=== PATIENT | female | born 2000 | race Caucasian/White ===

== ENCOUNTER 2023-07-04 06:40 | Inpatient (IN) | payer OTHER ==
[2023-07-04] MEDS ORDERED: ELECTROLYTE-148 SOLN 1,000 ML IV SCH (11:00)
[2023-07-04 11:23] LABS: BASO % 0.4 % (0-2.0); EOS % 1.3 % (0-4.5); HEMATOCRIT 38.5 % (32.4-45.2); HEMOGLOBIN 12.5 GM/dL (10.7-15.3); LYMPH % 14.9 % (8-40); MCHC 32.5 g/dl (32.0-36.0); MEAN PLT VOLUME 10.1 fl (7.5-11.1); MONO % 7.3 % (3.8-10.2); NEUT % 76.1 % (42.8-82.8); PLATELET COUNT 172 10^3/uL (134-434); RBC 4.81 M/mm3 (3.60-5.2); RDW 13.7 % (11.6-15.6)
[2023-07-04 11:28] LABS: INR 1.1 (0.83-1.09); PROTHROMBIN TIME (PATIENT) 12.8 SEC (9.7-13.0)
[2023-07-04 11:31] LABS: ACTIVATED PTT 29.9 SECONDS (25.2-36.5)
[2023-07-04 11:39] VITALS: BMI 37.8
[2023-07-04 12:00] LABS: POTASSIUM 4.3 mmol/L (3.5-5.1)
[2023-07-04 12:01] LABS: CALCIUM 9.4 mg/dL (8.5-10.1)
[2023-07-04 12:02] LABS: BLOOD UREA NITROGEN 10.1 mg/dL (7-18)
[2023-07-04 12:05] LABS: CREATININE 0.6 mg/dL (0.55-1.3)
[2023-07-04 12:50] LABS: COCAINE, UR NEGATIVE (NEGATIVE); METHADONE, UR NEGATIVE (NEGATIVE); URINE AMPHETAMINES NEGATIVE (NEGATIVE); URINE BENZODIAZEPINES NEGATIVE (NEGATIVE)
[2023-07-04 12:51] LABS: OPIATES, URI NEGATIVE (NEGATIVE); PHENCYCLIDINE,URINE NEGATIVE (NEGATIVE); URINE BARBITURATES NEGATIVE (NEGATIVE)
[2023-07-04 13:30] LABS: SYPHILIS W/ RPR CONF NON-REACTIVE (NONREACTIVE)
[2023-07-04 13:59] LABS: HIV INTERPRETATION NEGATIVE (NEGATIVE)
[2023-07-04] MEDS ORDERED: FENTANYL/BUPIVACAINE/NS/PF - PCEA - 50 ML DISP.SYRIN EP ONE ×4 (14:02→22:54)
[2023-07-04] MEDS: FENTANYL/BUPIVACAINE/NS/PF - PCEA - 50 ML DISP.SYRIN EP SCH (14:25)
[2023-07-04] MEDS ORDERED: NALOXONE HCL 0.4 MG/ML VIAL IVPUSH PRN (14:56)
[2023-07-04] MEDS ORDERED: OXYTOCIN 30 UNITS in 0.9% NS 30 UNIT/500 ML INFUS.BAG IVPB ONE (16:14)
[2023-07-04] MEDS ORDERED: OXYTOCIN 30 UNITS in 0.9% NS 30 UNIT/500 ML INFUS.BAG IVPB SCH (16:30)
[2023-07-04] MEDS ORDERED: OXYTOCIN 20 UNITS in 0.9% NS 20 UNIT/1,000 ML INFUS.BAG IV ONE (22:25)
[2023-07-04] MEDS ORDERED: LIDOCAINE HCL 1% PRESERVATIVE FREE - 30ML VIAL ONE (22:26)
[2023-07-05] MEDS ORDERED: OXYTOCIN 20 UNITS in 0.9% NS 20 UNIT/1,000 ML INFUS.BAG IV ONE (00:46)
[2023-07-05] MEDS ORDERED: METHYLERGONOVINE MALEATE 0.2 MG/1 ML AMP IM PRN (01:17)
[2023-07-05] MEDS ORDERED: BISACODYL 10 MG SUPP.RECT RC PRN (01:17)
[2023-07-05] MEDS ORDERED: oxyCODONE HCL 5 MG TABLET PO PRN (01:17)
[2023-07-05] MEDS ORDERED: WITCH HAZEL 50% (TUCKS) 40 PAD/JAR PAD TP PRN (01:17)
[2023-07-05] MEDS ORDERED: ACETAMINOPHEN 325 MG TABLET (FP) PO PRN (01:17)
[2023-07-05] MEDS ORDERED: BENZOCAINE 28 GM HEMORRHOIDAL OINTMENT TP PRN (01:17)
[2023-07-05] MEDS ORDERED: BENZOCAINE 20% 57 GM BOTTLE TP PRN (01:17)
[2023-07-05] MEDS ORDERED: OXYTOCIN 20 UNITS in 0.9% NS 20 UNIT/1,000 ML INFUS.BAG IV SCH (01:30)
[2023-07-05] MEDS ORDERED: ACETAMINOPHEN 325 MG TABLET (FP) ONE (01:59)
[2023-07-05] MEDS: IBUPROFEN 600 MG TABLET (FP) PO PRN ×2 (05:00→21:27)
[2023-07-05 09:27] LABS: BASO % 0.1 % (0-2.0); EOS % 0.2 % (0-4.5); HEMATOCRIT 33.4 % (32.4-45.2); HEMOGLOBIN 10.7 GM/dL (10.7-15.3); LYMPH % 4.9 % (8-40); MCH 25.9 pg (25.7-33.7); MCHC 31.9 g/dl (32.0-36.0); MEAN CELL VOLUME 81.2 fl (80-96); MEAN PLT VOLUME 10.6 fl (7.5-11.1); MONO % 5.6 % (3.8-10.2); NEUT % 89.2 % (42.8-82.8); PLATELET COUNT 130 10^3/uL (134-434); RBC 4.12 M/mm3 (3.60-5.2); RDW 13.6 % (11.6-15.6); WHITE BLOOD COUNT 19.5 K/mm3 (4.0-10.0)
[2023-07-05] MEDS ORDERED: FERROUS SO4 325 MG TABLET (FP) PO ONE (10:00)
[2023-07-05] MEDS: PRENATAL VITAMINS W/ FOLIC ACID TABLET (FP) PO SCH (10:25)
[2023-07-05] MEDS: ALBUTEROL SO4 2.5/IPRATROPIUM 0.5 INH SOL 3 ML VIAL.NEB. NEB PRN ×2 (13:15→20:14)
[2023-07-06] MEDS: ALBUTEROL SO4 2.5/IPRATROPIUM 0.5 INH SOL 3 ML VIAL.NEB. NEB PRN ×3 (02:29→19:22)
[2023-07-06] MEDS: PRENATAL VITAMINS W/ FOLIC ACID TABLET (FP) PO SCH (10:32)
[2023-07-06] MEDS: IBUPROFEN 600 MG TABLET (FP) PO PRN ×2 (10:32→22:00)
[2023-07-06] MEDS ORDERED: PNEUMOC 20-VAL CONJ-DIP CRM/PF 0.5 ML SYRINGE IM ONE (12:30)
[2023-07-06] MEDS: ALBUTEROL SO4 HFA INHALER IH PRN (16:30)
[2023-07-06] MEDS: FENTANYL/BUPIVACAINE/NS/PF - PCEA - 50 ML DISP.SYRIN EP SCH ×2 (17:31→17:32)
[2023-07-06] MEDS ORDERED: SENNOSIDES/DOCUSATE COMBO (SENNA PLUS) TABLET (UD) PO PRN (22:00)
[2023-07-06 22:32] VITALS: TEMP 98.4
[2023-07-07] MEDS: ALBUTEROL SO4 2.5/IPRATROPIUM 0.5 INH SOL 3 ML VIAL.NEB. NEB PRN ×2 (03:32→11:40)
[2023-07-07] MEDS: ALBUTEROL SO4 HFA INHALER IH PRN (06:55)
[2023-07-07 08:45] VITALS: RESP 16
[2023-07-07 09:18] VITALS: BP 108/70; PULSE 89
[2023-07-07] MEDS: PRENATAL VITAMINS W/ FOLIC ACID TABLET (FP) PO SCH (09:55)
== END 2023-07-07 13:39 | disposition home or self-care (01) | DRG 560 ==
LOC: JDEL 06:40 → JLDR 10:40 → J3W 07-05 04:50
PROVIDERS: ADMIT Obstetrics & Gynecology; ATTEND Obstetrics & Gynecology
PROC: 0HQ9XZZ Repair Perineum Skin, External Approach (ICD-10-PCS; principal; 2023-07-05)
PROC: 10E0XZZ Delivery of Products of Conception, External Approach (ICD-10-PCS; 2023-07-05)
DX: O70.0 First degree perineal laceration during delivery (principal); Z3A.39 39 weeks gestation of pregnancy; Z37.0 Single live birth
CPT/HCPCS: 36415; 59025; 76819-TC; 80048; 80307; 85025; 85610; 85730; 86780; 86850; 86900; 86901; 87081; 87389; 90677; 94640